=== PATIENT | female | born 1995 | race Caucasian/White ===

== ENCOUNTER 2019-03-13 03:04 | Emergency (ER) | payer BC ==
--- NOTE | 2019-03-13 03:33 | EDM.PDOC ---
ED HPI GENERAL MEDICAL PROBLEM - General Chief Complaint: [employer] Problem Stated Complaint: OB ISSUES... Time Seen by Provider: 03/13/19 03:20 Source of Information: Reports: Patient History Limitations: Reports: No Limitations - History of Present Illness INITIAL COMMENTS - FREE TEXT/NARRATIVE: TRIAGE NOTE -- pt c/o vaginal pain, states she stopped taking her antibiotics for bacterial vaginosis 3 days ago and started having worsening pain since. pt states she has more pain after intercourse and states "I am swollen down there now" patient is also concerned about her IUD because it has not been checked for 3 years. [ End ] No fever, no dysuria, no keith complaint suggestive of an acute condition. She alludes to apparent vulvar swelling and this will be examined and if there appears to be anything abnormal or acute we will proceed accordingly. Vaginal Pain Score (Numeric/FACES): 6 - Related Data Allergies Allergy/AdvReac Type Severity Reaction Status Date / Time No Known Allergies Allergy Verified 03/13/19 03:24 Home Meds: Home Meds . [No Known Home Meds] 03/13/19 [History] ED ROS GENERAL - Review of Systems Review Of Systems: Comprehensive ROS is negative, except as noted in HPI. ED EXAM, RENAL/ - Physical Exam Exam: See Below Exam Limited By: No Limitations General Appearance: Alert, WD/WN Eye Exam: Bilateral Eye: EOMI, PERRL Ears: Normal External Exam Nose: Normal Inspection Throat/Mouth: Normal Inspection Head: Atraumatic Neck: Supple Respiratory/Chest: No Respiratory Distress, Lungs Clear Cardiovascular: Regular Rate, Rhythm GI/Abdominal: Soft, Non-Tender (Female) Exam: Normal External Exam (No swelling, no evidence of trauma, no discharge) Back Exam: Normal Inspection Extremities: Normal Inspection Neurological: Alert, Oriented Psychiatric: Normal Affect Skin Exam: Warm, Dry Course - Vital Signs Last Recorded V/S: Last Vital Signs Temp 36.3 C 03/13/19 03:19 Pulse 53 L 03/13/19 03:19 Resp 16 03/13/19 03:19 BP 129/83 03/13/19 03:19 Pulse Ox 98 03/13/19 03:19 - Re-Assessments/Exams Free Text/Narrative Re-Assessment/Exam: 03/13/19 04:03 Patient does not present with a complaint suggestive of an acute condition requiring emergency department work-up. No fever no instability. For due diligence she was examined for swelling of vulvae she contended was present. There is no swelling or any suggestion of a condition requiring more emergency department work-up. Any gynecological condition she may have is amenable to outpatient work-up. She has access to gynecology. She has insurance. She needs to be seen for routine gynecological evaluation. Departure - Departure Time of Disposition: 04:06 Disposition: Home, Self-Care 01 Condition: Good Clinical Impression: Feared condition not demonstrated, No acute medical problems, Gynecological complaint - Discharge Information Referrals: PCP,None [Primary Care Provider] - Forms: ED Department Discharge Additional Instructions: You are in need of routine gynecological evaluation and follow-up. You do not have an acute condition requiring emergency department evaluation at this time. Make arrangements to be seen in clinic as soon as possible. Return to ER for any acute conditions such as fever, abdominal pain, nausea vomiting, acute respiratory complaint etc. Sepsis Event Note - Evaluation Sepsis Screening Result: No Definite Risk - Focused Exam Vital Signs: Vital Signs Temp Pulse Resp BP Pulse Ox 03/13/19 03:19 36.3 C 53 L 16 129/83 98 Date Exam was Performed: 03/13/19 Time Exam was Performed: 03:58
== END 2019-03-13 04:26 | disposition home or self-care (01) ==
LOC: JD.ED 03:04
DX: R10.2 Pelvic and perineal pain (principal)
CPT/HCPCS: 99283